=== PATIENT | female | born 1975 | race Two or more races ===

== ENCOUNTER 2016-04-07 10:25 | Emergency (ER) | payer OTHER ==
[2016-04-07 10:52] VITALS: RESP 16; TEMP 98.2
--- NOTE | 2016-04-07 10:54 | UCPHY ---
H & P Patient Type: New Chief Complaint Nursing Narrative: constipation and lower abdominal pain since Tuesday Time Seen by Provider: 04/07/16 10:44 HPI/ROS: CHIEF COMPLAINT: Constipation HISTORY OF PRESENT ILLNESS: Patient is a 41-year-old female who comes to the Urgent Care complaining constipation. She has not been able to have a bowel movement for the last 6 days. She has had problems with constipation in the past and has seen Gastroenterology. She tried taking Colace without significant improvement. She has not had any blood in her stool. She is not vomiting. She denies abdominal pain. She has a history of cholecystectomy. No fevers. REVIEW OF SYSTEMS: Constitutional: denies: chills, fever, recent illness, recent injury EENTM: denies: blurred vision, double vision, nose congestion Respiratory: denies: cough, shortness of breath Cardiac: denies: chest pain, irregular heart rate, lightheadedness, palpitations Gastrointestinal/Abdominal: See HPI Genitourinary: denies: dysuria, frequency, hematuria, pain Musculoskeletal: denies: joint pain, muscle pain Skin: denies: lesions, rash, jaundice, bruising Neurological: denies: headache, numbness, paresthesia, tingling, dizziness, weakness Hematologic/Lymphatic: denies: blood clots, easy bleeding, easy bruising Immunologic/allergic: denies: HIV/AIDS, transplant EXAM: GENERAL: Well-appearing, well-nourished and in no acute distress. HEAD: Atraumatic, normocephalic. EYES: Pupils equal round and reactive to light, extraocular movements intact, sclera anicteric, conjunctiva are normal. ENT: TMs normal, nares patent, oropharynx clear without exudates. Moist mucous membranes. NECK: Normal range of motion, supple without lymphadenopathy or JVD. LUNGS: Breath sounds clear to auscultation bilaterally and equal. No wheezes rales or rhonchi. HEART: Regular rate and rhythm without murmurs, rubs or gallops. ABDOMEN: Soft, nontender, normoactive bowel sounds. No guarding, no rebound. No masses appreciated. : No visible rectal fissure or hemorrhoid. Small amount of watery stool in her underwear BACK: No CVA tenderness, no spinal tenderness, step-offs or deformities EXTREMITIES: Normal range of motion, no pitting or edema. No clubbing or cyanosis. NEUROLOGICAL: Cranial nerves II through XII grossly intact. Normal speech, normal gait. 5/5 strength, normal movement in all extremities, normal sensation PSYCH: Normal mood, normal affect. SKIN: Warm, dry, normal turgor, no visible rashes or lesions. Source: Patient Exam Limitations: No limitations - Personal History LMP (Females 10-55): 8-14 Days Ago - Medical/Surgical History Hx Asthma: No Hx Chronic Respiratory Disease: No Hx Diabetes: No Hx Cardiac Disease: No Hx Renal Disease: No Hx Cirrhosis: No Hx Alcoholism: No Hx HIV/AIDS: No Hx Splenectomy or Spleen Trauma: No Other PMH: anneliese - Family History Significant Family History: No pertinent family hx - Social History Smoking Status: Never smoked Alcohol Use: Sober Drug Use: None Constitutional: Initial Vital Signs Temperature (C) 36.8 C 04/07/16 10:48 Heart Rate 106 H 04/07/16 10:48 Respiratory Rate 16 04/07/16 10:48 Blood Pressure 121/95 H 04/07/16 10:48 O2 Sat (%) 98 04/07/16 10:48 O2 Delivery Mode Room Air Allergies/Adverse Reactions: Sulfa (Sulfonamide Antibiotics) Allergy (Verified 04/07/16 10:47) Home Medications: Medication Instructions Recorded Docusate Sodium [Colace 100 MG (*)] 04/07/16 [place] 5/325 (*) 04/07/16 Polyethylene Glycol 3350 [Miralax 17 gm PO Q2 PRN #20 pkt 04/07/16 17 gm (*)] Medical Decision Making ED Course/Re-evaluation: Patient has a soft nontender abdomen. She would not cooperate with rectal exam. I recommended we start with MiraLax and titrated to effect. She understands and agrees with this plan. 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 She is nontoxic-appearing and has stable vital signs. Differential Diagnosis: Partial list of the Differential diagnosis considered include but were not limited to; constipation, rectal fissure, hemorrhoid, small bowel obstruction and although unlikely based on the history and physical exam, I also considered ischemia, appendicitis, urinary tract infection, kidney stone. I discussed these differential diagnoses and the plan with the patient as well as the usual and expected course. The patient understands that the diagnosis is provisional and that in medicine we are not always correct and that further workup is often warranted. Usual and customary warnings were given. All of the patient's questions were answered. The patient was instructed to return to the emergency department should the symptoms at all worsen or return, otherwise to followup with the physician as we discussed. Departure - Departure Disposition: Home, Routine, Self-Care Clinical Impression: Constipation Qualifiers: Constipation type: unspecified constipation type Qualified Code(s): K59.00 - Constipation, unspecified Condition: Fair Instructions: Constipation (ED) Referrals: Srinivasan Cheng MD [Medical Doctor] - As per Instructions Prescriptions: Polyethylene Glycol 3350 [Miralax 17 gm (*)] 17 gm PO Q2 PRN #20 pkt PRN Reason: Constipation - PQRS PQRS Measurement: Not applicable
[2016-04-07 11:19] VITALS: BP 107/69; PULSE 81; O2SAT 96
== END 2016-04-07 11:18 | disposition home or self-care (01) ==
LOC: CED 10:25
DX: K59.00 Constipation, unspecified (principal)
CPT/HCPCS: 99204-PO; G0463-PO